=== PATIENT | male | born 1995 | race American Indian/Alaskan Native ===

== ENCOUNTER 2017-10-13 11:48 | Emergency (ER) | payer OTHER ==
[~2017-10-13] VITALS: Ht 175.3 cm; Wt 94.8 kg
[2017-10-13] MEDS ORDERED: BACTRIM DS TAB1 EACH PO (12:29)
[2017-10-13] MEDS ORDERED: ULTRAM50 MG PO (12:29)
== END 2017-10-13 12:50 | disposition home or self-care (01) ==
LOC: ED 11:48
DX: L03.115 Cellulitis of right lower limb (principal); F17.200 Nicotine dependence, unspecified, uncomplicated
CPT/HCPCS: 96372; 99283

== ENCOUNTER 2018-03-16 15:08 | Emergency (ER) | payer OTHER ==
[~2018-03-16] VITALS: Ht 175.3 cm; Wt 94.8 kg
[~2018-03-16 15:08] MED LIST: BACTRIM DS TAB1 EACH PO; ULTRAM50 MG PO
--- NOTE | 2018-03-16 18:06 | EKG ---
[facility] [address] [facility] [place] [address] Signed Sinus tachycardia Otherwise normal ECG No previous ECGs available Confirmed by JOSH FLOYD MD ([id number]) on 03/16/2018 6:06:22 PM Electronically Signed By: JOSH FLOYD MD 03/16/18 1806 PATIENT NAME: MYASHANTELDANTE JR Electrocardiogram DATE OF : [birth year] PHYSICIAN: JOSH FLOYD MD REPORT #: [id number] REPORT IS CONFIDENTIAL AND NOT TO BE RELEASED WITHOUT AUTHORIZATION
== END 2018-03-16 16:37 | disposition home or self-care (01) ==
LOC: ED 15:08
DX: R55 Syncope and collapse (principal); F17.200 Nicotine dependence, unspecified, uncomplicated
CPT/HCPCS: 80053; 84484; 85025; 93005; 93010; 99284

== ENCOUNTER 2019-03-01 21:27 | Emergency (ER) | payer OTHER ==
[~2019-03-01] VITALS: Ht 175.3 cm; Wt 79.4 kg
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
[2019-03-01] MEDS ORDERED: DOXYCYCLINE HY100 MG PO (22:11)
== END 2019-03-01 22:15 | disposition home or self-care (01) ==
LOC: ED 21:27
PROC: 0HQ1XZZ Repair Face Skin, External Approach (ICD-10-PCS; principal; 2019-03-01)
DX: S01.412A Laceration without foreign body of left cheek and temporomandibular area, initial encounter (principal); S01.81XA Laceration without foreign body of other part of head, initial encounter; F17.200 Nicotine dependence, unspecified, uncomplicated; W06.XXXA Fall from bed, initial encounter; Y92.149 Unspecified place in prison as the place of occurrence of the external cause
CPT/HCPCS: 12013; 99282-25

== ENCOUNTER 2019-07-13 22:40 | Emergency (ER) | payer OTHER ==
[~2019-07-13] VITALS: Ht 175.3 cm; Wt 90.7 kg
[~2019-07-13 22:40] MED LIST changes: +DOXYCYCLINE HY100 MG PO
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
== END 2019-07-14 00:14 | disposition home or self-care (01) ==
LOC: ED 22:40
PROC: 0HQ1XZZ Repair Face Skin, External Approach (ICD-10-PCS; principal; 2019-07-13)
DX: S01.111A Laceration without foreign body of right eyelid and periocular area, initial encounter (principal); S00.83XA Contusion of other part of head, initial encounter; Z87.891 Personal history of nicotine dependence; Y04.0XXA Assault by unarmed brawl or fight, initial encounter
CPT/HCPCS: 12011; 70486; 99283-25

== ENCOUNTER → 2020-05-20 | Emergency (ER) | payer SELFPAY ==
[~2020-05-20] VITALS: Ht 175.3 cm; Wt 81.7 kg
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
== END ==
LOC: ED 22:21
DX: Z04.3 Encounter for examination and observation following other accident (principal); Z87.891 Personal history of nicotine dependence
CPT/HCPCS: 99283

== ENCOUNTER 2020-11-19 02:33 | Emergency (ER) | payer SELFPAY ==
[~2020-11-19] VITALS: Ht 175.3 cm; Wt 81.6 kg
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
== END 2020-11-19 05:00 | disposition home or self-care (01) ==
LOC: ED 02:33
DX: R00.0 Tachycardia, unspecified (principal); Z87.891 Personal history of nicotine dependence
CPT/HCPCS: 99285

== ENCOUNTER 2021-05-23 04:13 | Emergency (ER) | payer SELFPAY ==
[~2021-05-23] VITALS: Ht 182.9 cm; Wt 81.7 kg
--- OUTSIDE RECORDS SUMMARY | 2021-05-23 04:14 | XMS ---
PreManage Notification: DANTE HAM Security Telegraph Messenger Events 1 event(s) in the past 18 months Most recent security events: Elopement at [facility] 05/20/2020 22:22 - Other Details: PATIENT LEFT AMA. CRITERIA MET - Group Notification CARE PROVIDERS CAROLINA OLIVEIRA Nurse Practitioner: Family 03/03/2019-[facility] PHONE: [phone] [facility] Case Management 11/19/2020-[facility] PHONE: [phone] Harris has no Care Guidelines for this patient. Care History Medical/Surgical 11/19/2020 [facility] - PATIENT IS ANN HOPKINS, \T\middot;\T\nbsp; PLEASE REFER PATIENT TO [facility] FOR NON EMERGENT MEDICAL NEEDS. \T\middot;\T\nbsp; [facility] CAN SEE PATIENTS SAME DAY FOR APTS IF PATIENT CALLS FIRST THING IN THE MORNING. E.D. VISIT COUNT (12 MO.) 2 [facility] TOTAL 2 NOTE: Visits indicate total known visits. ED/UCC VISIT TRACKING (12 MO.) 05/23/2021 04:13 [facility] TYPE: Emergency COMPLAINT: - RIB PAIN 11/19/2020 02:34 [facility] TYPE: Emergency COMPLAINT: - CHEST PAIN DIAGNOSES: - Tachycardia, unspecified - Personal history of nicotine dependence INPATIENT VISIT TRACKING (12 MO.) No inpatient visits to display in this time frame [email or web address]
== END 2021-05-23 05:11 | disposition home or self-care (01) ==
LOC: ED 04:13
DX: R07.81 Pleurodynia (principal)
CPT/HCPCS: 71045; 99283

== ENCOUNTER 2022-01-14 20:36 | Emergency (ER) | payer OTHER ==
[~2022-01-14] VITALS: Ht 182.9 cm; Wt 77.1 kg
--- OUTSIDE RECORDS SUMMARY | 2022-01-14 20:38 | XMS ---
PreManage Notification: DANTE HAM Security Motor Mechanic Events No recent Security Events currently on file CRITERIA MET - Group Notification CARE PROVIDERS CAROLINA OLIVEIRA Nurse Practitioner: Family 03/03/2019-[facility] PHONE: Unknown [facility] Case Management 11/19/2020-[facility] PHONE: [phone] Harris has no Care Guidelines for this patient. Care History Medical/Surgical 11/19/2020 [facility] - PATIENT IS [facility] ELIGIBLE, \T\middot;\T\nbsp; PLEASE REFER PATIENT TO [facility] FOR NON EMERGENT MEDICAL NEEDS. \T\middot;\T\nbsp; [facility] CAN SEE PATIENTS SAME DAY FOR APTS IF PATIENT CALLS FIRST THING IN THE MORNING. E.D. VISIT COUNT (12 MO.) [address] [facility] TOTAL 2 NOTE: Visits indicate total known visits. ED/UCC VISIT TRACKING (12 MO.) 01/14/2022 20:37 [facility] TYPE: Emergency COMPLAINT: - VOMITING 05/23/2021 04:13 [facility] TYPE: Emergency COMPLAINT: - RIB PAIN DIAGNOSES: - Pleurodynia INPATIENT VISIT TRACKING (12 MO.) No inpatient visits to display in this time frame [id number]
== END 2022-01-14 22:50 | disposition home or self-care (01) ==
LOC: ED 20:36
DX: F15.10 Other stimulant abuse, uncomplicated (principal); Z02.89 Encounter for other administrative examinations; Z87.891 Personal history of nicotine dependence
CPT/HCPCS: 36415; 80053; 81001; 85025; 99284; A9270; J7030

== ENCOUNTER 2023-01-25 05:06 | Emergency (ER) | payer OTHER ==
[~2023-01-25] VITALS: Ht 175.3 cm; Wt 108.9 kg
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
== END 2023-01-25 06:50 | disposition home or self-care (01) ==
LOC: ED 05:06
DX: R30.0 Dysuria (principal); Z87.891 Personal history of nicotine dependence
CPT/HCPCS: 36415; 72170; 72193; 80053; 85025; 99284-25; Q9967

== ENCOUNTER 2023-05-22 23:03 | Emergency (ER) | payer OTHER ==
[~2023-05-22] VITALS: Ht 175.3 cm; Wt 104.3 kg
--- OUTSIDE RECORDS SUMMARY | ~2023-05-22 | XMS | Continuity of Care Document ---
Demographics + + + | Address | [address], [place] | | | [place] [address] | + + + | Preferred Language | Unknown | + + + | Marital Status | Never | + + + | Yazdanism Affiliation | Unknown | + + + | Race | or | + + + | Ethnic Group | Unknown | + + + Author + + + | Author | [facility] | + + + | Organization | [facility] | + + + | Address | [address] | | | [place] [address] | + + + | Phone | | + + + Care Team Providers + + + + | Care Webbing Inspector Name | Role | Phone | + + + + Unavailable | Unavailable | + + + + Allergies No information. Encounters No information. Functional Status No information. Immunizations No information. Medications No information. Problems + + + + | date | description | facility | + + + + | 2023-01-25 05:07 | OTHER SPECIFIED DISORDERS | [facility] | | | OF PENIS | | + + + + | 2023-01-25 05:07 | DYSURIA | [facility] | + + + + | 2023-01-25 05:07 | PERSONAL HISTORY OF | [facility] | | | NICOTINE DEPENDENCE | | + + + + Procedures No information. Results/Labs No information. Social History No information. Vital Signs No information."
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
[2023-05-23] MEDS ORDERED: PENICILLIN V P500 MG PO (00:19)
[2023-05-23 00:37] VITALS: BP 141/84
== END 2023-05-23 00:38 | disposition home or self-care (01) ==
LOC: ED 23:03
DX: S01.112A Laceration without foreign body of left eyelid and periocular area, initial encounter (principal); S02.5XXA Fracture of tooth (traumatic), initial encounter for closed fracture; W18.39XA Other fall on same level, initial encounter; R55 Syncope and collapse; Z87.891 Personal history of nicotine dependence
CPT/HCPCS: 12011; 36415; 80053; 85025; 99284 25

== ENCOUNTER 2024-03-17 21:15 | Emergency (ER) | payer OTHER ==
[~2024-03-17] VITALS: Ht 175.3 cm; Wt 78.0 kg
[~2024-03-17 21:15] MED LIST changes: +PENICILLIN V P500 MG PO
[2024-03-17 22:33] VITALS: BP 109/56
== END 2024-03-17 22:38 | disposition home or self-care (01) ==
LOC: ED 21:15
DX: S01.01XA Laceration without foreign body of scalp, initial encounter (principal); W22.8XXA Striking against or struck by other objects, initial encounter; Z87.891 Personal history of nicotine dependence
CPT/HCPCS: 12002; 99282

== ENCOUNTER 2025-01-23 14:20 | Emergency (ER) | payer OTHER ==
[~2025-01-23] VITALS: Ht 175.3 cm; Wt 81.8 kg
[2025-01-23 15:00] VITALS: BP 130/61
== END 2025-01-23 15:00 | disposition other institution, planned readmission (95) ==
LOC: ED 14:20
DX: F15.10 Other stimulant abuse, uncomplicated (principal); Z87.891 Personal history of nicotine dependence
CPT/HCPCS: 99282